=== PATIENT | female | born 1990 | race Two or more races ===

== ENCOUNTER 2021-06-01 13:28 | Emergency (ER) | payer OTHER ==
[~2021-06-01] VITALS: Ht 154.9 cm; Wt 68.0 kg
[2021-06-01] MEDS ORDERED: NAPR-1164 PO (13:52)
[2021-06-01] MEDS ORDERED: NAPROXEN 500 MG TABLET PO ONE (14:00)
--- NOTE | 2021-06-01 14:05 | NUR ---
Patient discharged to home in stable condition. Written and verbal after care instructions given. Patient verbalizes understanding of instructions. Stressed follow up or return to ER for worsening s/s.
[2021-06-01] MEDS ORDERED: NAPROXEN 500 MG TABLET ONE (14:08)
== END 2021-06-01 14:06 | disposition home or self-care (01) ==
LOC: ER 13:28
DX: M54.2 Cervicalgia (principal); J45.909 Unspecified asthma, uncomplicated; Z79.899 Other long term (current) drug therapy
CPT/HCPCS: A4663